=== PATIENT | male | born 1965 | race Caucasian/White ===

== ENCOUNTER 2017-01-04 19:37 | Emergency (ER) | payer BC ==
[~2017-01-04] VITALS: Ht 165.1 cm; Wt 67.1 kg
[2017-01-04 19:44] VITALS: BP 124/53
--- NOTE | 2017-01-04 20:52 | NUR ---
PT TAKEN TO BED 5
--- NOTE | 2017-01-04 20:55 | NUR ---
51 Y/O M W/C/O GENERAL WEAKNESS WITH SLURRED SPEACH X 4 HRS AGO. FAMILY STATES THEY NOTICIED THE CHANGE IN SPEECH AFTER PT SMOKED SOME [place]. VSS, NO S/S OF DSITRESS NOTED AT THE MOMENT. ON MONITOR. ER NOTIFIED.
--- NOTE | 2017-01-04 20:58 | NUR ---
Dr. Hamilton evaluating patient at bedside.
[2017-01-04] MEDS ORDERED: LORazepam 2 MG/ML VIAL IM ONE (21:10)
--- NOTE | 2017-01-04 21:19 | NUR ---
PT TAKEN TO CT
--- NOTE | 2017-01-04 21:28 | NUR ---
PT BACK FROM CT. ON MONITOR. VSS.
[2017-01-04 21:49] LABS: AMPHETAMINE, URINE NEG. ng/ml (NEG <=1000); BARBITURATE, URINE NEG. ng/ml (NEG <=200); BENZODIAZEPINE, URINE NEG. ng/mL (NEG <=200); CANNABINOID, URINE POS. ng/mL (NEG <=50); COCAINE, URINE NEG. ng/mL (NEG <=300); OPIATE, URINE NEG. ng/mL (NEG <=2000); PHENCYCLIDINE SCREEN,URINE NEG. ng/mL (NEG <=25)
--- NOTE | 2017-01-04 22:03 | NUR ---
PT RESTING ON BED, ON MONITOR, VSS. NO S/S OF DISTRESS NOTED UP TO THIS POINT.
[2017-01-04 22:22] VITALS: BP 118/91
--- NOTE | 2017-01-04 22:22 | NUR ---
Patient discharged with v/s stable. Written and verbal after care instructions given and explained. Patient verbalized understanding. Ambulatory with steady gait. All questions addressed prior to discharge. Advised to follow up with PMD.
== END 2017-01-04 22:22 | disposition home or self-care (01) ==
LOC: MED 19:37
DX: F12.10 Cannabis abuse, uncomplicated
CPT/HCPCS: 70450; 80305; 96372; 99285; J2060